=== PATIENT | male | born 1965 | race African-American/Black ===

== ENCOUNTER 2020-02-08 04:02 | Emergency (ER) | payer MEDICAID ==
[~2020-02-08] VITALS: Ht 172.7 cm; Wt 70.0 kg
[2020-02-08] MEDS ORDERED: METHYLPREDNISOLONE SOD SUCC 40 MG/ML VIAL IV ONE (05:00)
[2020-02-08] MEDS ORDERED: FAMOTIDINE 20MG TABLET PO ONE (05:00)
[2020-02-08] MEDS ORDERED: DIPHENHYDRAMINE 50MG/ML VIAL IV ONE (05:00)
[2020-02-08] MEDS ORDERED: EPINEPHRINE 1:1000 1 MG/ML AMP INJ ONE (05:00)
[2020-02-08 05:15] LABS: BASOPHILS % 0.9 % (0.0-2.0); EOSINOPHILS % 0.9 % (0.0-5.0); HEMATOCRIT. 39.1 % (42.0-52.0); HEMOGLOBIN. 12.6 g/dL (14.0-18.0); LYMPHOCYTES % 23.5 % (20.0-50.0); MEAN CORPUSCULAR HEMOGLOBIN 28.7 pg (28.0-32.0); MEAN PLATELET VOLUME 8.5 fl (7.4-10.4); MONOCYTES % 13.4 % (2.0-8.0); NEUTROPHILS % 61.3 % (40.0-76.0); PLATELET 192 x1000/uL (130-400); RED BLOOD CELL COUNT 4.39 mill/uL (4.7-6.1); RED CELL DISTRIBUTION WIDTH 12.2 % (11.6-14.6)
[2020-02-08 05:18] LABS: CHLORIDE 104 mEq/L (98-107)
[2020-02-08 07:50] VITALS: BP 114/63
== END 2020-02-08 07:53 | disposition home or self-care (01) ==
LOC: ER 04:02
DX: T88.6XXA Anaphylactic reaction due to adverse effect of correct drug or medicament properly administered, initial encounter (principal); R22.0 Localized swelling, mass and lump, head; I10 Essential (primary) hypertension; Y92.89 Other specified places as the place of occurrence of the external cause
CPT/HCPCS: 36415; 71045; 80053; 83880; 84443; 84484; 85025; 93005; 96374; 96375; 99285; J1200; J2920; J3490

== ENCOUNTER 2020-02-11 02:19 | Emergency (ER) | payer MEDICAID ==
[~2020-02-11] VITALS: Ht 172.7 cm; Wt 71.0 kg
[2020-02-11] MEDS ORDERED: KETOROLAC 30MG/ML VIAL IV STA (02:57)
[2020-02-11 03:22] LABS: BASOPHILS % 0.7 % (0.0-2.0); EOSINOPHILS % 0.7 % (0.0-5.0); HEMATOCRIT. 36.8 % (42.0-52.0); LYMPHOCYTES % 18.4 % (20.0-50.0); MEAN CORPUSCULAR HEMOGLOBIN 28.7 pg (28.0-32.0); MEAN CORPUSCULAR VOLUME 88.2 fL (80.0-94.0); MEAN PLATELET VOLUME 8.4 fl (7.4-10.4); NEUTROPHILS % 66.2 % (40.0-76.0); PLATELET 180 x1000/uL (130-400); RED BLOOD CELL COUNT 4.18 mill/uL (4.7-6.1); RED CELL DISTRIBUTION WIDTH 12.1 % (11.6-14.6)
[2020-02-11 03:25] LABS: CHLORIDE 108 mEq/L (98-107)
[2020-02-11 04:40] LABS: CLARITY URINE CLEAR (CLEAR); COLOR URINE YELLOW (YELLOW); KETONES URINE NEGATIVE (NEGATIVE); LEUKOCYTE ESTERASE URINE 1+ (NEGATIVE); NITRITE URINE NEGATIVE (NEGATIVE); OCCULT BLOOD URINE NEGATIVE (NEGATIVE); PH URINE 6.5 (4.5-8.0); PROTEIN URINE NEGATIVE (NEGATIVE); UROBILINOGEN URINE 0.2 E.U./dL (0.2-1.0)
[2020-02-11 05:01] VITALS: BP 136/62
== END 2020-02-11 05:19 | disposition home or self-care (01) ==
LOC: ER 02:19
DX: N39.0 Urinary tract infection, site not specified (principal); N40.0 Benign prostatic hyperplasia without lower urinary tract symptoms; I10 Essential (primary) hypertension; Z88.0 Allergy status to penicillin
CPT/HCPCS: 36415; 74176; 80053; 81003; 83690; 85025; 93005; 96374; 99285; J1885

== ENCOUNTER 2020-02-24 10:54 | Emergency (ER) | payer MEDICAID ==
[~2020-02-24] VITALS: Ht 170.2 cm; Wt 71.0 kg
[2020-02-24 10:56] VITALS: BP 130/93
== END 2020-02-24 12:07 | disposition left against medical advice (07) ==
LOC: ER 10:54
DX: Z53.21 Procedure and treatment not carried out due to patient leaving prior to being seen by health care provider (principal)

== ENCOUNTER 2020-05-25 00:20 | Emergency (ER) | payer MEDICAID ==
[~2020-05-25] VITALS: Ht 172.7 cm; Wt 66.0 kg
[2020-05-25 00:42] VITALS: BP 149/97
[2020-05-25] MEDS ORDERED: DIPHENHYDRAMINE 25MG CAPSULE PO ONE (01:00)
== END 2020-05-25 05:04 | disposition left against medical advice (07) ==
LOC: ER 00:20
DX: L27.0 Generalized skin eruption due to drugs and medicaments taken internally (principal); T36.8X5A Adverse effect of other systemic antibiotics, initial encounter; Y92.89 Other specified places as the place of occurrence of the external cause; N39.0 Urinary tract infection, site not specified; I10 Essential (primary) hypertension
CPT/HCPCS: 99281

== ENCOUNTER 2020-06-10 04:30 | Emergency (ER) | payer MEDICAID, OTHER ==
[~2020-06-10] VITALS: Ht 172.7 cm; Wt 73.0 kg
[2020-06-10 05:08] VITALS: BP 144/102
[2020-06-10] MEDS ORDERED: LACTULOSE 300 ML in WATER FOR IRRIGATION,STERILE 700 ML IR ONE (06:15)
[2020-06-10] MEDS ORDERED: MAGNESIUM CITRATE 300ML SOLUTION PO ONE (06:15)
[2020-06-10] MEDS ORDERED: POLY17PO3 PO (06:17)
[2020-06-10] MEDS ORDERED: LACTULOSE 20G/30ML UDC PO ONE (06:30)
== END 2020-06-10 07:10 | disposition home or self-care (01) ==
LOC: ER 04:30
DX: K59.00 Constipation, unspecified (principal); I10 Essential (primary) hypertension
CPT/HCPCS: 99283

== ENCOUNTER 2020-06-16 20:55 | Emergency (ER) | payer OTHER ==
[~2020-06-16] VITALS: Ht 172.7 cm; Wt 73.0 kg
[~2020-06-16 20:55] MED LIST: POLY17PO3 PO
[2020-06-16 22:49] VITALS: BP 132/91
[2020-06-16 23:15] LABS: BASOPHILS % 0.7 % (0.0-2.0); EOSINOPHILS % 0.9 % (0.0-5.0); HEMATOCRIT. 42.8 % (42.0-52.0); HEMOGLOBIN. 13.9 g/dL (14.0-18.0); LYMPHOCYTES % 22.6 % (20.0-50.0); MEAN CORPUSCULAR HEMOGLOBIN 28.8 pg (28.0-32.0); MEAN CORPUSCULAR VOLUME 88.7 fL (80.0-94.0); MEAN PLATELET VOLUME 8.9 fl (7.4-10.4); MONOCYTES % 9.8 % (2.0-8.0); PLATELET 183 x1000/uL (130-400); RED BLOOD CELL COUNT 4.83 mill/uL (4.7-6.1); RED CELL DISTRIBUTION WIDTH 12.5 % (11.6-14.6)
[2020-06-16 23:16] LABS: CHLORIDE 104 mEq/L (98-107)
== END 2020-06-16 23:10 | disposition left against medical advice (07) ==
LOC: ER 20:55
DX: I10 Essential (primary) hypertension (principal); F41.9 Anxiety disorder, unspecified; Z88.0 Allergy status to penicillin; Z88.2 Allergy status to sulfonamides
CPT/HCPCS: 36415; 71045; 80053; 83880; 84484; 85025; 93005; 99285

== ENCOUNTER 2020-06-17 14:04 | Inpatient (IN) | payer OTHER ==
[~2020-06-17] VITALS: Ht 172.7 cm; Wt 72.1 kg
[2020-06-17 14:47] LABS: BASOPHILS % 0.8 % (0.0-2.0); HEMATOCRIT. 42.6 % (42.0-52.0); HEMOGLOBIN. 13.7 g/dL (14.0-18.0); LYMPHOCYTES % 16.1 % (20.0-50.0); MEAN CORPUSCULAR HEMOGLOBIN 28.6 pg (28.0-32.0); MEAN CORPUSCULAR VOLUME 88.9 fL (80.0-94.0); MEAN PLATELET VOLUME 8.5 fl (7.4-10.4); MONOCYTES % 12.8 % (2.0-8.0); NEUTROPHILS % 69.3 % (40.0-76.0); PLATELET 189 x1000/uL (130-400); RED CELL DISTRIBUTION WIDTH 12.6 % (11.6-14.6)
[2020-06-17 14:56] LABS: CHLORIDE 106 mEq/L (98-107); INR 1.1; PROTHROMBIN TIME 11.3 sec (9.6-11.0)
[2020-06-17 15:00] LABS: ETHANOL BLOOD < 10 mg/dL
[2020-06-17] MEDS ORDERED: ASPIRIN 325MG TABLET PO ONE (15:00)
[2020-06-17] MEDS ORDERED: IOHEXOL-300 100 ML BOTTLE ONE (15:51)
[2020-06-17 17:29] LABS: CLARITY URINE CLEAR (CLEAR); COLOR URINE YELLOW (YELLOW); KETONES URINE NEGATIVE (NEGATIVE); LEUKOCYTE ESTERASE URINE NEGATIVE (NEGATIVE); NITRITE URINE NEGATIVE (NEGATIVE); OCCULT BLOOD URINE NEGATIVE (NEGATIVE); PH URINE 6.5 (4.5-8.0); PROTEIN URINE NEGATIVE (NEGATIVE); SPECIFIC GRAVITY URINE 1.024 (1.005-1.030); UROBILINOGEN URINE 0.2 E.U./dL (0.2-1.0)
[2020-06-17 17:43] LABS: *BENZODIAZEPINES SCREEN URINE NEGATIVE (NEGATIVE); *COCAINE SCREEN URINE NEGATIVE (NEGATIVE)
[2020-06-17 17:44] LABS: CANNABINOID URINE SCREEN NEGATIVE (NEGATIVE); METHADONE URINE SCREEN NEGATIVE (NEGATIVE); OPIATES URINE SCREEN NEGATIVE (NEGATIVE); PHENCYCLIDINE URINE SCREEN NEGATIVE (NEGATIVE)
[2020-06-17 17:45] LABS: *AMPHETAMINES SCREEN URINE NEGATIVE (NEGATIVE); *BARBITURATES SCREEN URINE NEGATIVE (NEGATIVE)
[2020-06-17] MEDS ORDERED: LORAZEPAM 0.5MG TABLET PO PRN (20:00)
[2020-06-17] MEDS ORDERED: NITROGLYCERIN 0.4MG TABLET SL SL PRN (20:00)
[2020-06-17] MEDS ORDERED: CLONIDINE 0.1MG TABLET PO PRN (20:00)
[2020-06-17] MEDS ORDERED: TRAMADOL 50MG TABLET PO PRN (20:00)
[2020-06-17] MEDS ORDERED: ACETAMINOPHEN 325MG TABLET PO PRN ×2 (20:00)
[2020-06-17] MEDS ORDERED: MAGNESIUM/ALUMINUM HYDROXIDE/SIMETHICONE 30ML UDC PO PRN (20:00)
[2020-06-17] MEDS ORDERED: KETOROLAC 15MG/ML VIAL IV PRN (20:00)
[2020-06-17] MEDS ORDERED: GUAIFENESIN 200MG/10ML SUGAR FREE UDC PO PRN (20:00)
[2020-06-17] MEDS ORDERED: IPRATROPIUM/ALBUTEROL 0.5-3(2.5)MG/3ML NEB NEB PRN (20:00)
[2020-06-17] MEDS ORDERED: DOCUSATE SODIUM 100MG CAPSULE PO PRN (20:00)
[2020-06-17] MEDS ORDERED: ONDANSETRON HCL 4MG/2ML INJ IV PRN (20:00)
[2020-06-17] MEDS: FAMOTIDINE 20MG TABLET PO SCH (21:00)
[2020-06-17] MEDS ORDERED: ZOLPIDEM TARTRATE 5MG TABLET PO PRN (21:00)
[2020-06-17] MEDS: ENOXAPARIN 40MG/0.4ML SYR SUBCUT SCH (21:00)
[2020-06-17 21:46] LABS: FOLIC ACID (FOLATE) SERUM 9.3 ng/mL (>5.38)
[2020-06-17 23:52] LABS: CREATINE KINASE 215 IU/L (39-308)
[2020-06-17 23:53] LABS: CREATINE KINASE MB FRACTION 3.2 ng/mL (0.5-3.6)
[2020-06-18] VITALS (8 sets, daily range): BP systolic 124–152; BP diastolic 66–99
[2020-06-18 05:04] LABS: HEMATOCRIT. 40.8 % (42.0-52.0); HEMOGLOBIN. 13.2 g/dL (14.0-18.0); MEAN CORPUSCULAR HEMOGLOBIN 28.6 pg (28.0-32.0); MEAN CORPUSCULAR VOLUME 88.3 fL (80.0-94.0); MEAN PLATELET VOLUME 8.7 fl (7.4-10.4); PLATELET 168 x1000/uL (130-400); RED BLOOD CELL COUNT 4.62 mill/uL (4.7-6.1); RED CELL DISTRIBUTION WIDTH 12.5 % (11.6-14.6)
[2020-06-18 05:12] LABS: CHLORIDE 106 mEq/L (98-107)
[2020-06-18 05:16] LABS: PHOSPHORUS 3.9 mg/dL (2.5-4.9)
[2020-06-18 05:19] LABS: CREATINE KINASE 198 IU/L (39-308)
[2020-06-18 05:22] LABS: CREATINE KINASE MB FRACTION 3.1 ng/mL (0.5-3.6)
[2020-06-18] MEDS ORDERED: ASPIRIN 325MG EC TABLET PO SCH (09:00)
[2020-06-18] MEDS: FAMOTIDINE 20MG TABLET PO SCH ×2 (09:59→22:36)
[2020-06-18] MEDS ORDERED: REGADENOSON 0.4 MG/5 ML IV NR (11:30)
[2020-06-18] MEDS ORDERED: SPIR25TA MT (11:31)
[2020-06-18] MEDS ORDERED: TAMS-11 MT (11:31)
[2020-06-18 12:00] LABS: PLATELET ESTIMATE NORMAL
[2020-06-18] MEDS ORDERED: REGADENOSON 0.4 MG/5 ML IV ONE (13:49)
[2020-06-18] MEDS: ENOXAPARIN 40MG/0.4ML SYR SUBCUT SCH (21:00)
[2020-06-18] MEDS ORDERED: ATORVASTATIN CALCIUM 40MG TABLET PO SCH (21:00)
[2020-06-19] VITALS (9 sets, daily range): BP systolic 90–129; BP diastolic 61–91
[2020-06-19] MEDS: FAMOTIDINE 20MG TABLET PO SCH (08:47)
[2020-06-19] MEDS ORDERED: ASPIRIN 81MG EC TABLET PO SCH (09:00)
== END 2020-06-19 14:35 | disposition home or self-care (01) | DRG 205 ==
LOC: ER 14:08 → MICUSO 19:03 → EDBEDREQ 19:09 → EDBEDREQTM 19:09 → 3WST 06-18 07:48
PROVIDERS: ADMIT Internal Medicine; ATTEND Internal Medicine
DX: M94.0 Chondrocostal junction syndrome [Tietze] (principal); N17.0 Acute kidney failure with tubular necrosis; D63.8 Anemia in other chronic diseases classified elsewhere; E78.5 Hyperlipidemia, unspecified; R19.7 Diarrhea, unspecified; R00.1 Bradycardia, unspecified; Z20.822 Contact with and (suspected) exposure to COVID-19; I10 Essential (primary) hypertension; K59.00 Constipation, unspecified; Z82.49 Family history of ischemic heart disease and other diseases of the circulatory system; Z88.0 Allergy status to penicillin; Z88.2 Allergy status to sulfonamides
CPT/HCPCS: 36415; 71045; 74177; 78452; 80053; 80061; 80305; 80307; 80320; 81003; 82550; 82553; 82607; 82746; 83036; 83540; 83550; 83605; 83735; 83880; 84100; 84484; 85025; 87426; 93005; 93017; 93306; 93970; 99285; A9500; J1650; J2785; Q9967; G0480

== ENCOUNTER 2020-06-28 02:26 | Emergency (ER) | payer OTHER ==
[~2020-06-28] VITALS: Ht 172.7 cm; Wt 78.8 kg
[~2020-06-28 02:26] MED LIST changes: +SPIR25TA MT; +TAMS-11 MT
[2020-06-28] MEDS ORDERED: IBUPROFEN 600MG TABLET PO STA (03:45)
[2020-06-28] MEDS ORDERED: ACETAMINOPHEN 325MG TABLET PO STA (03:45)
[2020-06-28] MEDS ORDERED: MAGNESIUM CITRATE 300ML SOLUTION PO ONE (04:00)
[2020-06-28 04:31] LABS: CHLORIDE 104 mEq/L (98-107)
[2020-06-28 04:40] LABS: BASOPHILS % 0.6 % (0.0-2.0); EOSINOPHILS % 0.8 % (0.0-5.0); HEMATOCRIT. 42.8 % (42.0-52.0); HEMOGLOBIN. 13.4 g/dL (14.0-18.0); LYMPHOCYTES % 19.9 % (20.0-50.0); MEAN CORPUSCULAR HEMOGLOBIN 28.2 pg (28.0-32.0); MEAN CORPUSCULAR VOLUME 89.9 fL (80.0-94.0); MEAN PLATELET VOLUME 8.9 fl (7.4-10.4); MONOCYTES % 12.4 % (2.0-8.0); NEUTROPHILS % 66.3 % (40.0-76.0); PLATELET 173 x1000/uL (130-400); RED BLOOD CELL COUNT 4.76 mill/uL (4.7-6.1); RED CELL DISTRIBUTION WIDTH 12.5 % (11.6-14.6)
[2020-06-28 04:48] LABS: INR 1.1; PROTHROMBIN TIME 11.4 sec (9.6-11.0)
[2020-06-28 05:00] VITALS: BP 136/89
[2020-06-28 05:43] LABS: CLARITY URINE CLEAR (CLEAR); COLOR URINE YELLOW (YELLOW); KETONES URINE NEGATIVE (NEGATIVE); LEUKOCYTE ESTERASE URINE TRACE (NEGATIVE); NITRITE URINE NEGATIVE (NEGATIVE); OCCULT BLOOD URINE NEGATIVE (NEGATIVE); PROTEIN URINE NEGATIVE (NEGATIVE); SPECIFIC GRAVITY URINE 1.012 (1.005-1.030); UROBILINOGEN URINE 0.2 E.U./dL (0.2-1.0)
[2020-06-28] MEDS ORDERED: METR500T MT (06:04)
[2020-06-28] MEDS ORDERED: AZIT500T8 MT (06:04)
[2020-06-28] MEDS ORDERED: HYDR25SU11 RC (06:05)
== END 2020-06-28 06:40 | disposition home or self-care (01) ==
LOC: ER 02:26
DX: K52.9 Noninfective gastroenteritis and colitis, unspecified (principal); K62.89 Other specified diseases of anus and rectum; I10 Essential (primary) hypertension; Z79.899 Other long term (current) drug therapy; Z88.0 Allergy status to penicillin; Z88.2 Allergy status to sulfonamides
CPT/HCPCS: 36415; 74176; 80053; 81003; 85025; 99284

== ENCOUNTER 2020-07-27 21:13 | Emergency (ER) | payer OTHER ==
[~2020-07-27] VITALS: Ht 172.7 cm; Wt 69.0 kg
[~2020-07-27 21:13] MED LIST changes: +AZIT500T8 MT; +HYDR25SU11 RC; +METR500T MT
[2020-07-27 22:48] VITALS: BP 138/96
== END 2020-07-27 22:48 | disposition home or self-care (01) ==
LOC: ER 21:13
DX: I10 Essential (primary) hypertension (principal)
CPT/HCPCS: 99281

== ENCOUNTER 2021-02-28 18:02 | Inpatient (IN) | payer OTHER ==
[~2021-02-28] VITALS: Ht 172.7 cm; Wt 76.7 kg
[2021-02-28] MEDS ORDERED: ASPIRIN 81MG TABLET PO SCH (23:30)
[2021-02-28 23:58] LABS: BASOPHILS % 0.6 % (0.0-2.0); EOSINOPHILS % 0.8 % (0.0-5.0); HEMATOCRIT. 40.1 % (42.0-52.0); LYMPHOCYTES % 18.5 % (20.0-50.0); MEAN CORPUSCULAR HEMOGLOBIN 28.8 pg (28.0-32.0); MONOCYTES % 13.2 % (2.0-8.0); NEUTROPHILS % 66.9 % (40.0-76.0); PLATELET 192 x1000/uL (130-400); RED BLOOD CELL COUNT 4.51 mill/uL (4.7-6.1); RED CELL DISTRIBUTION WIDTH 12.3 % (11.6-14.6)
[2021-03-01] MEDS ORDERED: ENALAPRIL 1.25MG/ML VIAL 1ML IV SCH
[2021-03-01 00:46] LABS: CHLORIDE 108 mEq/L (98-107)
[2021-03-01 09:30] VITALS: BP 135/97
[2021-03-01 11:01] VITALS: BP 135/97
[2021-03-01 12:00] VITALS: BP 137/87
[2021-03-01] MEDS ORDERED: DOCUSATE SODIUM 100MG CAPSULE PO PRN (12:15)
[2021-03-01] MEDS ORDERED: MORPHINE SULFATE 2 MG/ML CPJ (NOT FOR IM USE) IV PRN (12:15)
[2021-03-01] MEDS ORDERED: NALOXONE HCL 0.4MG/ML VIAL IV PRN (12:15)
[2021-03-01] MEDS ORDERED: IPRATROPIUM/ALBUTEROL 0.5-3(2.5)MG/3ML NEB HHN PRN (12:15)
[2021-03-01] MEDS ORDERED: LORAZEPAM 0.5MG TABLET PO PRN (12:15)
[2021-03-01] MEDS ORDERED: HYDROCODONE/ACETAMINOPHEN 5/325MG TABLET PO PRN (12:15)
[2021-03-01] MEDS ORDERED: CLONIDINE 0.1MG TABLET PO PRN (12:15)
[2021-03-01] MEDS ORDERED: ACETAMINOPHEN 325MG TABLET PO PRN ×2 (12:15)
[2021-03-01] MEDS ORDERED: ONDANSETRON HCL 4MG/2ML INJ IV PRN (12:15)
[2021-03-01] MEDS ORDERED: NITROGLYCERIN 0.4MG TABLET SL SL PRN (12:15)
[2021-03-01] MEDS: AMLODIPINE 5MG TABLET PO SCH (13:57)
[2021-03-01] MEDS: ASPIRIN 81MG EC TABLET PO SCH (14:05)
[2021-03-01] MEDS ORDERED: CLON0.1T PO (15:55)
[2021-03-01] MEDS ORDERED: IRBE300T17 PO (15:57)
[2021-03-01 16:00] VITALS: BP 135/97
[2021-03-01 20:00] VITALS: BP 150/95
[2021-03-01] MEDS: ATORVASTATIN CALCIUM 10MG TABLET PO SCH (20:47)
[2021-03-02] VITALS: BP 124/78
[2021-03-02 04:00] VITALS: BP 132/78
[2021-03-02 06:58] LABS: BASOPHILS % 0.7 % (0.0-2.0); EOSINOPHILS % 1.3 % (0.0-5.0); HEMATOCRIT. 42.7 % (42.0-52.0); HEMOGLOBIN. 13.7 g/dL (14.0-18.0); LYMPHOCYTES % 22.4 % (20.0-50.0); MEAN CORPUSCULAR HEMOGLOBIN 28.7 pg (28.0-32.0); MEAN CORPUSCULAR VOLUME 89.5 fL (80.0-94.0); MEAN PLATELET VOLUME 9.1 fl (7.4-10.4); MONOCYTES % 12.1 % (2.0-8.0); NEUTROPHILS % 63.5 % (40.0-76.0); PLATELET 202 x1000/uL (130-400); RED BLOOD CELL COUNT 4.77 mill/uL (4.7-6.1); RED CELL DISTRIBUTION WIDTH 12.4 % (11.6-14.6)
[2021-03-02 07:22] LABS: CHLORIDE 108 mEq/L (98-107)
[2021-03-02 08:00] VITALS: BP 122/83
[2021-03-02] MEDS: AMLODIPINE 5MG TABLET PO SCH (08:47)
[2021-03-02] MEDS: ASPIRIN 81MG EC TABLET PO SCH (08:47)
[2021-03-02 12:00] VITALS: BP 124/86
[2021-03-02 15:13] LABS: VITAMIN B12 SERUM 970 pg/mL (211-911)
[2021-03-02 16:00] VITALS: BP 137/91
[2021-03-02 20:00] VITALS: BP 143/88
[2021-03-02] MEDS: ATORVASTATIN CALCIUM 10MG TABLET PO SCH (20:19)
[2021-03-03] VITALS: BP 140/91
[2021-03-03 08:29] VITALS: BP 140/97
[2021-03-03] MEDS: ASPIRIN 81MG EC TABLET PO SCH (09:58)
[2021-03-03] MEDS: AMLODIPINE 5MG TABLET PO SCH (09:58)
[2021-03-03] MEDS ORDERED: ASPI-1406 PO (11:28)
[2021-03-03] MEDS ORDERED: AMLO5TAB88 PO (11:28)
[2021-03-03] MEDS ORDERED: ATOR10TA PO (11:28)
[2021-03-03 12:10] VITALS: BP 128/89
[2021-03-03 13:35] VITALS: BP 140/96
[2021-03-03 14:00] VITALS: BP 140/96
== END 2021-03-03 14:20 | disposition home or self-care (01) | DRG 313 ==
LOC: ER 18:02 → MICUSO 03-01 00:55 → EDBEDREQ 03-01 00:57 → EDBEDREQTM 03-01 00:57 → EDBEDREQDT 03-01 00:57 → 6WST 03-01 08:11
PROVIDERS: ADMIT Internal Medicine; ATTEND Internal Medicine
DX: R07.89 Other chest pain (principal); I31.3 Pericardial effusion (noninflammatory); I50.30 Unspecified diastolic (congestive) heart failure; I42.2 Other hypertrophic cardiomyopathy; D64.9 Anemia, unspecified; E78.5 Hyperlipidemia, unspecified; R00.1 Bradycardia, unspecified; I11.0 Hypertensive heart disease with heart failure; R10.32 Left lower quadrant pain; N40.0 Benign prostatic hyperplasia without lower urinary tract symptoms; Z88.0 Allergy status to penicillin; Z88.2 Allergy status to sulfonamides; Z79.899 Other long term (current) drug therapy; Z79.2 Long term (current) use of antibiotics
CPT/HCPCS: 36415; 71045; 80048; 80053; 82607; 83036; 83735; 83880; 84443; 84484; 85025; 93005; 93306; 99285; J3490